=== PATIENT | male | born 1990 | race Caucasian/White ===

== ENCOUNTER 2022-12-13 12:31 | Emergency (ER) | payer OTHER ==
[~2022-12-13] VITALS: Ht 193 cm; Wt 90.7 kg
[2022-12-13] MEDS ORDERED: PROP10 PO (12:42)
[2022-12-13 14:00] VITALS: BP 135/86
[2022-12-13] MEDS ORDERED: MORP15ER PO (14:02)
== END 2022-12-13 14:19 | disposition home or self-care (01) ==
LOC: ER 12:31
DX: S43.015A Anterior dislocation of left humerus, initial encounter (principal); I10 Essential (primary) hypertension; W18.30XA Fall on same level, unspecified, initial encounter
CPT/HCPCS: 23655; 73020; 73030; 96374-59; 96375-59; 99152; 99284-25; J1885; J2270; J2704